=== PATIENT | female | born 1990 | race Caucasian/White ===

== ENCOUNTER 2023-08-24 13:24 | Outpatient (CLI) | payer BC ==
--- NOTE | 2023-08-24 19:13 | Ultrasound Report ---
PROCEDURE: Pelvic w/Transvaginal INDICATIONS: PELVIC PAIN TECHNIQUE: Real-time scanning was performed of the pelvic organs, with image documentation. Additional endovagi nal scanning was necessary due to incomplete visualization of the adnexal and endometrial structures by transabdominal scanning. COMPARISON: None. FINDINGS: Uterus: Uterus is anteverted and normal in size at 9.7 x 3.6 x 4.7 cm. The myometrium is homogeneou s. The endometrium measures 7 mm in combined thickness. Benign nabothian cysts are present. C-secti on scar. Ovaries: The right ovary measures 2.4 x 1.8 x 1.7 cm, with a calculated ovarian volume of 3.8 cc. T he left ovary measures 2.4 x 1.6 x 1.5 cm, with a calculated ovarian volume of 2.9 cc. The ovaries h ave a normal sonographic appearance. Less than 12 follicles can be seen in each ovary. No adnexal m asses are seen. No cystic lesions measuring greater than 3 cm. Other: No pathologic free abdominal or pelvic fluid. IMPRESSION: Unremarkable pelvic ultrasound. Reviewed by: Neil Laguna on 08/24/2023 7:12 PM PDT Approved by: Neil Laguna on 08/24/2023 7:12 PM PDT Station ID: [id number]
== END 2023-08-24 13:25 | disposition home or self-care (01) ==
LOC: DI 13:24
PROVIDERS: ATTEND Nurse Practitioner
DX: R10.2 Pelvic and perineal pain (principal); R14.0 Abdominal distension (gaseous); N92.1 Excessive and frequent menstruation with irregular cycle
CPT/HCPCS: 36415; 82728; 84443; 85027

== ENCOUNTER 2023-08-24 14:13 | Outpatient (CLI) | payer BC ==
[2023-08-24 14:29] LABS: HCT - HEMATOCRIT 41.8 % (37.0-47.0); HGB - HEMOGLOBIN 13.9 g/dL (12.0-16.0); MEAN CORPUSCULAR HEMOGLOBIN 32.3 pg (27.0-31.0); MEAN CORPUSCULAR HGB CONC 33.3 g/dL (32.0-36.0); MEAN PLATELET VOLUME 9.5 fL (7.9-10.8); RED BLOOD COUNT 4.31 10^6/uL (4.20-5.40); RED CELL DISTRIBUTION WIDTH 11.5 % (12.0-15.0); WHITE BLOOD COUNT 7.9 x10^3/uL (4.8-10.8)
[2023-08-24 14:54] LABS: THYROID STIMULATING HORMONE 1.45 uIU/mL (0.34-5.60)
[2023-08-24 14:59] LABS: FERRITIN 23.4 ng/mL (11.0-306.8)
== END 2023-08-24 14:14 | disposition home or self-care (01) ==
LOC: LAB 14:13
PROVIDERS: ATTEND Nurse Practitioner
DX: N92.1 Excessive and frequent menstruation with irregular cycle (principal); R14.0 Abdominal distension (gaseous); R10.2 Pelvic and perineal pain
CPT/HCPCS: 36415; 82728; 84443; 85027

== ENCOUNTER 2023-09-10 16:13 | Outpatient (CLI) | payer BC ==
[~2023-09-10 16:13] MED LIST: GADOTERATE MEGLUMINE 10 MMOL/20 ML VIAL ONE
[2023-09-10] MEDS ORDERED: GADOTERATE MEGLUMINE 10 MMOL/20 ML VIAL IVP ONE (17:30)
--- NOTE | 2023-09-11 09:42 | MRI Report ---
PROCEDURE: PELVIS W/WO INDICATIONS: PELVIC PAIN CONTRAST: 13.6ml [place] TECHNIQUE: Coronal ultra fast SE, sagittal breath-hold T2 FSE; axial T1 FSE with and without fat saturation thro ugh the pelvis. Additional long- and short-axis uterine nonbreath-hold T2 FSE through the uterus. Sa gittal dynamic ultra fast GE during administration of contrast. Post-contrast axial ultra fast GE / 2-D spoiled GE with fat saturation from the iliac crests to the symphysis. Additional diffusion weigh dixon imaging and ADC was performed. COMPARISON: Pelvic ultrasound 08/15/2023 FINDINGS: Image quality: Excellent. Uterus: Uterus is normal in size. Endometrium is normal in thickness. There is mild thickening of the junctional zone at the anterior uterine body measuring up to 15 mm. The junctional zone is otherw ise within normal limits in thickness. Surgical scarring is seen at the lower uterine segment from pr ior section. Nabothian cysts are seen in the cervix. Adnexa: Both ovaries are normal in size, without suspicious cystic or solid lesions. A peripherally enhancing physiologic right ovarian follicle is noted. Urinary system: Bladder wall is normal in thickness. Distal ureters are non distended. Urethra lashell ears normal in morphology. Nodes and vessels: No pelvic or inguinal adenopathy by size criteria. Iliac vessels are normal in s ize. Bowel and peritoneum: Small amount of free fluid in the pelvis is most likely physiologic. Colon and small bowel loops are normal in caliber. Soft tissues: No inguinal hernias. No findings of pelvic floor incompetence in the absence of provo cation. Bones: Marrow demonstrates normal overall signal. IMPRESSION: 1.No focal endometrial deposit is visualized in the pelvis to suggest endometriosis. 2.Mild thickening of the junctional zone at the anterior uterus can be seen in the setting of adenomy osis. Recommend clinical correlation. 3.Small amount of free fluid in the pelvis is considered physiologic. Reviewed by: Jim Salazar MD on 09/11/2023 9:40 AM PST Approved by: Jim Salazar MD on 09/11/2023 9:40 AM PST Station ID: [id number]
== END 2023-09-10 16:14 | disposition home or self-care (01) ==
LOC: DI 16:13
PROVIDERS: ATTEND Nurse Practitioner
DX: R14.0 Abdominal distension (gaseous) (principal); R10.2 Pelvic and perineal pain; N92.4 Excessive bleeding in the premenopausal period
CPT/HCPCS: 72197; A9575

== ENCOUNTER 2024-03-11 16:23 | Outpatient (CLI) | payer BC ==
--- NOTE | 2024-03-12 14:54 | XRAY Report ---
PROCEDURE: Ankle 3+V LT INDICATIONS: LEFT ANKLE PAIN TECHNIQUE: 3 views of the ankle were acquired. COMPARISON: None. FINDINGS: Bones: No acute fractures or dislocations. Ankle mortise is normally aligned. No suspicious bony l esions.] Ossification is present distal to the medial malleolus appearing chronic. Soft tissues: No tibiotalar joint effusion. Achilles tendon appears normal. IMPRESSION: No visualized acute fracture or dislocation. However, occult injury cannot be excluded. Recommend erik rt interval imaging follow-up in 7-10 days as clinically indicated for additional evaluation. Reviewed by: Cristine Howell MD on 03/12/2024 2:53 PM PDT Approved by: Cristine Howell MD on 03/12/2024 2:53 PM PDT Station ID: [id number]
== END 2024-03-11 16:24 | disposition home or self-care (01) ==
LOC: DI 16:23
PROVIDERS: ATTEND Orthopaedic Surgery
DX: M25.572 Pain in left ankle and joints of left foot (principal)

== ENCOUNTER 2024-03-15 08:00 | Outpatient (CLI) | payer BC ==
[2024-03-15 19:34] LABS: BACTERIAL VAGINOSIS DNA NEGATIVE (NEGATIVE); CANDIDA GLABRATA DNA NEGATIVE (NEGATIVE); CANDIDA GROUP DNA NEGATIVE (NEGATIVE); CANDIDA KRUSEI DNA NEGATIVE (NEGATIVE); TRICHOMONAS VAGINALIS DNA NEGATIVE (NEGATIVE)
== END 2024-03-15 23:59 | disposition home or self-care (01) ==
LOC: LAB.WC 08:00
PROVIDERS: ATTEND Obstetrics & Gynecology
DX: N89.8 Other specified noninflammatory disorders of vagina (principal)
CPT/HCPCS: 81514

== ENCOUNTER 2024-03-24 18:57 | Outpatient (CLI) | payer BC ==
--- NOTE | 2024-03-25 10:52 | CT Report ---
PROCEDURE: Lower Extremity LT WO INDICATIONS: L ANKLE PAIN TECHNIQUE: Noncontrast 3-mm axial sections acquired from the distal tibial shaft to the talar dome, with coronal and sagittal reformats. For radiation dose reduction, the following was used: automated exposure c ontrol, adjustment of mA and/or kV according to patient size. COMPARISON: Left ankle radiographs 03/11/2024 FINDINGS: Image quality: Excellent. Bones: A corticated ossification adjacent to the medial malleolar tip is likely the sequela of a rem ote prior injury. No acute osseous fracture or dislocation. No osteochondral lesion is seen in the ta lar dome. No suspicious osseous lesion. Soft tissues: Mild soft tissue edema overlying the medial malleolus. No significant tibiotalar effus ion. The articular cartilages, ligaments, and tendons are not well evaluated with CT, although no lar ge retracted tendon tear is seen. The visualized musculature is normal in bulk. IMPRESSION: 1.No acute osseous abnormality. 2.Small ossification adjacent to the medial malleolar tip is most likely the sequela of a remote prio r injury. 3.MRI could be performed for further evaluation if there is continued concern for occult trabecular b one injury or soft tissue injury. Reviewed by: Jim Salazar MD on 03/25/2024 10:51 AM PDT Approved by: Jim Salazar MD on 03/25/2024 10:51 AM PDT Station ID: [id number]
== END 2024-03-24 18:58 | disposition home or self-care (01) ==
LOC: DI 18:57
PROVIDERS: ATTEND Orthopaedic Surgery
DX: M25.572 Pain in left ankle and joints of left foot (principal)